=== PATIENT | male | born 1945 | race Caucasian/White ===

== ENCOUNTER 2017-09-18 10:00 | Outpatient (CLI) | payer MEDICARE ==
[~2017-09-18] VITALS: Ht 182.9 cm; Wt 111.1 kg
[2017-09-18] MEDS ORDERED: SIMV40TA4 PO (10:28)
[2017-09-18] MEDS ORDERED: OMEP20CA12 PO (10:28)
[2017-09-18] MEDS ORDERED: AMLO5TAB2 PO (10:28)
[2017-09-18] MEDS ORDERED: LOSA50TA36 PO (10:28)
[2017-09-18] MEDS ORDERED: FENO145T37 PO (10:28)
[2017-09-18] MEDS ORDERED: ALLO100T PO (10:28)
[2017-09-30] MEDS ORDERED: CIPR-226 PO (11:32)
[2017-09-30] MEDS ORDERED: ACET1TAB43 PO (11:33)
== END 2017-09-18 10:33 ==
LOC: PREOP 10:00
PROVIDERS: ATTEND Radiology Radiation Oncology
DX: Z01.818 Encounter for other preprocedural examination (principal)

== ENCOUNTER 2017-09-30 10:48 | Day surgery (SDC) | payer MEDICARE ==
[~2017-09-30] VITALS: Ht 182.9 cm; Wt 113.4 kg
[~2017-09-30 10:48] MED LIST: ALLO100T PO; AMLO5TAB2 PO; FENO145T37 PO; LOSA50TA36 PO; OMEP20CA12 PO; SIMV40TA4 PO
[2017-09-30] MEDS ORDERED: LACTATED RINGERS 1,000 ML IV PRN (11:04)
[2017-09-30 11:10] VITALS: BP 163/98
[2017-09-30] MEDS ORDERED: LEVOFLOXACIN 500 MG/100 ML IV 100 ML IV ONE (11:15)
[2017-09-30] MEDS ORDERED: LIDOCAINE PF 2% 5 ML (XYLOCAINE) VIAL ONE (11:27)
[2017-09-30] MEDS ORDERED: ROCURONIUM 10 MG/ML 5 ML SYRINGE IV ONE (11:27)
[2017-09-30] MEDS ORDERED: proPOfol 200 MG/20 ML (DIPRIVAN) VIAL IV ONE (11:27)
[2017-09-30] MEDS ORDERED: fentaNYL INJECTION 100 MCG/2 ML AMP ONE ×2 (11:27→14:04)
[2017-09-30] MEDS ORDERED: ONDANSETRON 4 MG/2 ML (SDV) Z0FRAN ONE (11:29)
[2017-09-30] MEDS ORDERED: SEVOFLURANE (ULTANE) 15 ML INHAL SOLN ONE ×3 (11:29→14:36)
[2017-09-30] MEDS ORDERED: DEXAMETHASONE 10 MG/ML (DECADRON) 1 ML VIAL ONE (11:29)
--- NOTE | 2017-09-30 11:29 | Progress Note-Pre Operative ---
Pre-Operative Progress Note H&P Reviewed The H&P was reviewed, patient examined and no changes noted. Date Seen by Provider: Sep 30, 2017 Time Seen by Provider: : Date H&P Reviewed: Sep 30, 2017 Time H&P Reviewed: :28 Pre-Operative Diagnosis: cT1c, PSA 5.08, [place] 7 (4+3) Prostate cancer MICAH MCCARTHY MD Sep 30, 2017 11:29
[2017-09-30] MEDS ORDERED: CIPR-226 PO (11:32)
[2017-09-30] MEDS ORDERED: ACET1TAB43 PO (11:33)
--- NOTE | 2017-09-30 11:37 | Discharge Inst-Simple/Standard ---
Discharge Inst-Standard Discharge Medications New, Converted or Re-Newed RX: Other (scripts called to [facility] bolanos in [place] on 09/29/17) Patient Instructions/Follow Up Plan of Care/Instructions/FU: 1) Follow up for post implant scan at [facility] center 10/28/17 at 10:00 a.m. 2) Follow up with Dr. Armstrong on 11/02/17 at 2:30 p.m. Activity as Tolerated: Yes Discharge Diet: No Restrictions Other Inst to Patient Patient wants catheter removal at Dr. Armstrong's office. Need to confirm with Dr. Armstrong either Monday 10/02 or Thursday 10/05. Then call office [phone] to set up appointment. MICAH MCCARTHY MD Sep 30, 2017 11:37
[2017-09-30] MEDS ORDERED: GLYCOPYRROLATE 0.2 MG/ML (ROBINUL) 2 ML VIAL ONE (14:36)
[2017-09-30] MEDS ORDERED: NEOSTIGMINE 1 MG/ML 5 ML SYRINGE ONE (14:36)
--- NOTE | 2017-09-30 14:37 | Progress Note-Post Operative ---
Post-Operative Progess Note Surgeon (s)/Termite Control Servicer (s) Surgeon MICAH MCCARTHY MD Termite Control Servicer: Davina STOKES MD Pre-Operative Diagnosis cT1c, PSA 5.08, [place] 7 (4+3) Prostate cancer Post-Operative Diagnosis Same as pre-op Procedure & Operative Findings Date of Procedure 09/30/17 Procedure Performed/Findings 67% Attenuated Cesium 131 permanent prostate seed implant; Insertion of biodegradable hydrogel prostate rectal spacer utilizing the SpaceOAR system; cystogram Prostate volume measured 41.5 cc Anesthesia Type General Estimated Blood Loss Estimated blood loss (mL): Minimal Specimens/Packing Specimens Removed None Packing: None MICAH MCCARTHY MD Sep 30, 2017 14:37
--- NOTE | 2017-09-30 14:38 | Diagnostic Imaging Report ---
INDICATION: Prostate brachytherapy. PROCEDURE: Fluoroscopy was provided to Dr. Shaffer for performance of brachytherapy. 13 seconds of fluoroscopy was utilized. Multiple radiation seed implants overlie the midline of the lower pelvis. IMPRESSION: Fluoroscopy during brachytherapy. Dictated by: Dictated on workstation # [id number]
[2017-09-30] MEDS: HYDROmorphone 1 MG/ML (DILAUDID) 1 ML SYRINGE IV PRN ×2 (14:39→14:49)
[2017-09-30] MEDS ORDERED: ONDANSETRON 4 MG/2 ML (SDV) Z0FRAN IVP PRN (14:45)
[2017-09-30] MEDS ORDERED: fentaNYL INJECTION 100 MCG/2 ML AMP IVP PRN (14:45)
--- NOTE | 2017-09-30 15:23 | Anesthesia-General Post-Op ---
General Patient Condition Mental Status/LOC: Same as Preop Cardiovascular: Satisfactory Nausea/Vomiting: Absent Respiratory: Satisfactory Pain: Controlled Complications: Absent Post Op Complications Complications None Follow Up Care/Instructions Patient Instructions None needed. Anesthesia/Patient Condition Patient Condition Patient is doing well, no complaints, stable vital signs, no apparent adverse anesthesia problems. KEYON DOCKERY DO Sep 30, 2017 15:23
[2017-09-30 15:25] VITALS: BP 166/99
[2017-09-30 15:55] VITALS: BP 172/99
[2017-09-30 16:25] VITALS: BP 143/97
[2017-09-30 16:45] VITALS: BP 143/97
== END 2017-09-30 16:52 | disposition home or self-care (01) ==
LOC: SDC 10:48
PROVIDERS: ATTEND Radiology Radiation Oncology
DX: C61 Malignant neoplasm of prostate (principal); I10 Essential (primary) hypertension; G47.33 Obstructive sleep apnea (adult) (pediatric); K21.9 Gastro-esophageal reflux disease without esophagitis; Z87.891 Personal history of nicotine dependence
CPT/HCPCS: 76965; 77318; 77332; 77370; 77470; 77778; 87081

== ENCOUNTER 2017-10-28 09:45 | Outpatient (RCR) | payer MEDICARE ==
[~2017-10-28 09:45] MED LIST changes: +ACET1TAB43 PO; -AMLO5TAB2 PO; +AMLO5TAB7 PO; +CIPR-226 PO; -LOSA50TA36 PO; +LOSA50TA7 PO
[2017-10-28 11:28] LABS: CREATININE SERUM 0.99 MG/DL (0.60-1.30)
== END 2017-11-22 | disposition home or self-care (01) ==
LOC: ONC 09:45
PROVIDERS: ATTEND Radiology Radiation Oncology
DX: C61 Malignant neoplasm of prostate (principal)
CPT/HCPCS: 36415; 77290; 82565; 84520